=== PATIENT | male | born 1980 | race Caucasian/White ===

== ENCOUNTER 2018-01-26 19:17 | Emergency (ER) | payer SELFPAY ==
--- NOTE | 2018-01-26 19:44 | ER Document Report ---
ED Medical Screen (RME) - General Chief Complaint: Chest Pain Stated Complaint: CHEST PAINS, HEADACHE, MOUTH PROBLEM Time Seen by Provider: 01/26/18 19:43 Mode of Arrival: Ambulatory Information source: Patient Notes: 37 years old male presents today with complaining of right frontal and right occipital pain/headache for the last few days. And also having right-sided chest pain. States that his submandibular salivary gland get occluded on and off. - Related Data Allergies/Adverse Reactions: No Known Allergies Allergy (Unverified 01/26/18 19:43) Past Medical History - Social History Chew tobacco use (# tins/day): No Frequency of alcohol use: None Drug Abuse: None Renal/ Medical History: Denies: Hx Peritoneal Dialysis Physical Exam - Vital signs Vitals: Temp Pulse Resp BP Pulse Ox 98.3 F 85 18 127/88 H 95 01/26/18 19:37 01/26/18 19:37 01/26/18 19:37 01/26/18 19:37 01/26/18 19:37 Course - Vital Signs Vital signs: Temp Pulse Resp BP Pulse Ox 98.3 F 85 18 127/88 H 95 01/26/18 19:37 01/26/18 19:37 01/26/18 19:37 01/26/18 19:37 01/26/18 19:37
--- NOTE | 2018-01-26 20:02 | RADIOLOGY REPORT (SQ) ---
EXAM DESCRIPTION: CT HEAD WITHOUT COMPLETED DATE/TIME: 01/26/2018 7:52 pm REASON FOR STUDY: Headache COMPARISON: None. TECHNIQUE: Axial images acquired through the brain without intravenous contrast. Images reviewed wi th bone, brain and subdural windows. Additional sagittal and coronal reconstructions were generated. Images stored on PACS. All CT scanners at this facility use dose modulation, iterative reconstruction, and/or weight based d osing when appropriate to reduce radiation dose to as low as reasonably achievable (ALARA). [facility]: Dose Right [facility]: CareDose [facility]: Dose Right [facility]: Teradose 4D [facility]: NanoCellect RADIATION DOSE: CT Rad equipment meets quality standard of care and radiation dose reduction techniq ues were employed. CTDIvol: 53.2 mGy. DLP: 1044 mGy-cm. mGy. LIMITATIONS: None. FINDINGS: VENTRICLES: Normal size and contour. CEREBRUM: No masses. No hemorrhage. No midline shift. No evidence for acute infarction. Normal gra y/white matter differentiation. No areas of low density in the white matter. CEREBELLUM: No masses. No hemorrhage. No alteration of density. No evidence for acute infarction. EXTRAAXIAL SPACES: No fluid collections. No masses. ORBITS AND GLOBE: No intra- or extraconal masses. Normal contour of globe without masses. CALVARIUM: No fracture. PARANASAL SINUSES: Extensive mucoperiosteal thickening is present in the right maxillary sinus. SOFT TISSUES: No mass or hematoma. OTHER: No other significant finding. IMPRESSION: Right maxillary sinus disease with no acute intracranial imaging findings. EVIDENCE OF ACUTE STROKE: NO. COMMENT: Quality ID # [id number]: Final reports with documentation of one or more dose reduction techniques (e.g., Automated exposure control, adjustment of the mA and/or kV according to patient size, use of iterative reconstruction technique) TECHNICAL DOCUMENTATION: JOB ID: [id number] [employer]- All Rights Reserved Reading location - IP/workstation name: [email or web address]
--- NOTE | 2018-01-26 21:17 | ER Document Report ---
ED General - General Chief Complaint: Chest Pain Stated Complaint: CHEST PAINS, HEADACHE, MOUTH PROBLEM Time Seen by Provider: 01/26/18 19:43 Mode of Arrival: Ambulatory Information source: Patient - HPI Patient complains to provider of: Head pains, chest pains Onset/Duration: Waxing and waning Quality of pain: Sharp Severity: Moderate Pain Level: 3 Associated symptoms: Chest pain, Headache Exacerbated by: Denies Relieved by: Denies Similar symptoms previously: Yes Recently seen / treated by doctor: No Notes: Patient is a 37-year-old male presenting to the emergency room for episodes of sharp shooting electric shock type pain to his head and his chest that have been going on for the past few months, yesterday he had both of them at the same time, prompting him to seek medical attention today, he also reports changes to the space under his tongue, states as a child the salivary glands used to get clogged, and now he notices it seems whitish discolored in the area below his tongue on the left, there is no pain, no discharge, no redness, and he can see saliva coming out of the gland without difficulty - Related Data Allergies/Adverse Reactions: No Known Allergies Allergy (Unverified 01/26/18 19:43) Past Medical History - General Information source: Patient - Social History Smoking Status: Former Smoker Chew tobacco use (# tins/day): No Frequency of alcohol use: None Drug Abuse: None Family History: Reviewed & Not Pertinent Patient has suicidal ideation: No Patient has homicidal ideation: No Renal/ Medical History: Denies: Hx Peritoneal Dialysis Review of Systems - Review of Systems Constitutional: No symptoms reported EENT: See HPI Cardiovascular: See HPI Respiratory: No symptoms reported Gastrointestinal: No symptoms reported Genitourinary: No symptoms reported Male Genitourinary: No symptoms reported Musculoskeletal: No symptoms reported Skin: No symptoms reported Hematologic/Lymphatic: No symptoms reported Neurological/Psychological: See HPI -: Yes All other systems reviewed and negative Physical Exam - Vital signs Vitals: Temp Pulse Resp BP Pulse Ox 98.3 F 85 18 127/88 H 95 01/26/18 19:37 01/26/18 19:37 01/26/18 19:37 01/26/18 19:37 01/26/18 19:37 Interpretation: Normal - General General appearance: Appears well, Alert - HEENT Head: Normocephalic, Atraumatic Eyes: Normal Conjunctiva: Normal Extraocular movements intact: Yes Eyelashes: Normal - Slight whitish discoloration in the intraoral submandibular space on the left, no masses or stones palpated, no active drainage, oral mucosa is moist Pupils: PERRL - Respiratory Respiratory status: No respiratory distress Chest status: Nontender Breath sounds: Normal Chest palpation: Normal - Cardiovascular Rhythm: Regular Heart sounds: Normal auscultation Murmur: No - Abdominal Inspection: Normal Distension: No distension Bowel sounds: Normal Tenderness: Nontender Organomegaly: No organomegaly - Back Back: Normal, Nontender - Extremities General upper extremity: Normal inspection, Nontender, Normal color, Normal ROM , Normal temperature General lower extremity: Normal inspection, Nontender, Normal color, Normal ROM , Normal temperature, Normal weight bearing. No: Edilberto's sign - Neurological Neuro grossly intact: Yes Cognition: Normal Orientation: AAOx4 [place] Coma Scale Eye Opening: Spontaneous Kenn Coma Scale Verbal: Oriented [place] Coma Scale Motor: Obeys Commands [place] Coma Scale Total: 15 Speech: Normal Motor strength normal: LUE, RUE, LLE, RLE Sensory: Normal - Psychological Associated symptoms: Normal affect, Normal mood - Skin Skin Temperature: Warm Skin Moisture: Dry Skin Color: Normal Course - Re-evaluation Re-evalutation: 01/26/18 23:22 Imaging findings discussed with patient at bedside which is consistent with right maxillary sinus disease, patient discharged with prescription for Augmentin and advised to follow-up if symptoms worsen, patient acknowledges understanding and agreement with this plan - Vital Signs Vital signs: Temp Pulse Resp BP Pulse Ox 98.4 F 72 17 150/89 H 98 01/26/18 21:21 01/26/18 21:21 01/26/18 21:21 01/26/18 21:21 01/26/18 21:21 - Diagnostic Test Radiology reviewed: Image reviewed, Reports reviewed - EKG Interpretation by Me EKG shows normal: Sinus rhythm Rate: Normal Rhythm: NSR Discharge - Discharge Clinical Impression: Sinusitis Condition: Stable Disposition: HOME, SELF-CARE Instructions: Chest Pain of Unclear Cause ([facility]), Neurologist, Sinusitis ([facility]) Additional Instructions: Follow up with your primary care provider in one to 2 days. Return to the emergency room immediately if symptoms worsen or any additional concerns. Prescriptions: Amox Tr/Potassium Clavulanate [Augmentin 875-125 Tablet] 1 tab PO BID #20 tablet Referrals: DONNA SEXTON MD [ACTIVE STAFF] - Follow up as needed
[2018-01-26] MEDS ORDERED: AMOXICILLIN TR/POT CLAVULANATE 500-125 MG TAB PO ONE (21:18)
[2018-01-26 21:30] VITALS: BP 150/89
--- NOTE | 2018-01-27 07:53 | EKG REPORT ---
SEVERITY:- ABNORMAL ECG - SINUS RHYTHM INCOMPLETE RIGHT BUNDLE BRANCH BLOCK : Confirmed by: Tariq Hermosillo MD 27-Jan-2018 07:52:26
== END 2018-01-26 21:15 | disposition home or self-care (01) ==
LOC: ER 19:17
DX: J32.9 Chronic sinusitis, unspecified (principal); R07.9 Chest pain, unspecified; R51 Headache; Z87.891 Personal history of nicotine dependence
CPT/HCPCS: 70450; 93005; 93010; 99285